=== PATIENT | female | born 1985 | race Caucasian/White ===

== ENCOUNTER 2021-08-22 15:19 | Emergency (ER) | payer OTHER, SELFPAY ==
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
--- NOTE | ~2021-08-22 | XR_ITS ---
EXAMINATION: XR chest 2V DATE: 08/22/2021 15:49 INDICATION: Chest wall pain. TECHNIQUE: Frontal and lateral views of the chest were obtained. COMPARISON: Chest 2 views 12/30/2014 FINDINGS: The chest demonstrates clear lungs without pneumonia, pleural effusion, or pneumothorax. Th e heart size is normal. IMPRESSION: 1. No acute cardiopulmonary disease. Reviewed, dictated and finalized at location B. [facility]
[2021-08-22 15:23] VITALS: BP 153/89; PULSE 99; RESP 18; TEMP 37.1; O2SAT 100
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
[2021-08-22] MEDS: IBUPROFEN 400 MG TABLET PO (15:36)
[2021-08-22] MEDS: ACETAMINOPHEN 325 MG TABLET 650 MG PO (15:36)
== END 2021-08-22 16:20 | disposition home or self-care (01) ==
PROVIDERS: Emergency Provider Emergency Medicine
DX: R07.89 Other chest pain (principal); S40.021A Contusion of right upper arm, initial encounter; M25.531 Pain in right wrist; M79.641 Pain in right hand; V43.52XA Car driver injured in collision with other type car in traffic accident, initial encounter
CPT/HCPCS: 71046; 73110; 73130; 99284; A9270